=== PATIENT | female | born 1945 | race Caucasian/White ===

== ENCOUNTER 2021-10-09 16:10 | Observation (INO) | payer MEDICARE, SELFPAY ==
[2021-10-09 16:34] VITALS: BMI 22.4
[2021-10-09] MEDS ORDERED: Ondansetron PF 4 MG/2 ML Vial IVP PRN (16:41)
[2021-10-09] MEDS ORDERED: Acetaminophen 325 MG TAB PO PRN (16:41)
[2021-10-09] MEDS ORDERED: HYDROcodone/Acetaminophen 5/325 mg Tablet PO PRN (16:41)
[2021-10-09] MEDS ORDERED: hydrALAZINE 20 MG/ML VIAL SLOW IVP PRN (16:46)
[2021-10-09] MEDS ORDERED: Sodium Chloride 0.9% 500 ML IV SCH (17:15)
[2021-10-09 17:20] LABS: Bilirubin Neg (Negative); Blood, Urine Negative (Negative); Clarity Clear (Clear); Glucose, Urine (Dipstick) Normal (Negative); Ketone, Urine 15 mg/dL (Negative); Leukocyte Negative (Negative); Nitrite Negative (Negative); Protein, Urine (Dipstick) Negative (Neg-Trace); Specific Gravity, Urine 1.015 (1.002-1.036); Urobilinogen Normal mg/dL (Less than 2)
[2021-10-09 17:23] LABS: Troponin I 0.122 ng/mL (< 0.028)
[2021-10-09 20:10] LABS: Troponin I 0.099 ng/mL (< 0.028)
[2021-10-10 05:01] LABS: #Eosinphils 0.1 10x3/uL (0.0-0.5); #Monocytes 0.5 10x3/uL (0.0-1.1); #Neutrophils 3.1 10x3/uL (1.5-8.4); %Basophils 0.2 % (0.0-2.0); %Eosinophils 1.5 % (0.0-6.0); %Lymphocytes 28.8 % (18.0-47.0); %Monocytes 9.9 % (0.0-10.0); %Neutrophils 59.4 % (40.0-75.0); Hemoglobin 13.4 g/dL (12.0-15.5); Mean Corpuscular HGB CONC 34.8 g/dL (32.0-36.0); Mean Corpuscular Hemoglobin 30.7 pg (27.0-33.0); Mean Corpuscular Volume 88.1 fl (81.6-98.3); Mean Platelet Volume 10.1 fl (7.4-10.4); Platelet Count 218 10x3/uL (150-450); RBC Distribution Width 12.2 % (11.5-14.5); Red Blood Cell (RBC) Count 4.37 10x6/uL (3.90-5.03); White Blood Cell (WBC) Count 5.3 10x3/uL (3.5-10.5)
[2021-10-10 05:15] LABS: ALT (SGPT) 20 U/L (8-55); AST (SGOT) 17 U/L (5-34); Albumin 3.8 g/dL (3.4-4.8); Alkaline Phosphatase 57 U/L (40-110); Anion Gap 10 mmol/L (10-20); BUN (Urea Nitrogen) 7 mg/dL (9.8-20.1); Bilirubin, Total 0.9 mg/dL (0.2-1.2); Calc. Creatinine Clearance 70 mL/min (70-130); Calcium 9.1 mg/dL (7.8-10.44); Carbon Dioxide 26 mmol/L (23-31); Cardiac Risk 2.8 (Less than 4.5); Chloride 98 mmol/L (98-107); Cholesterol 173 mg/dl (< 200 Desired); Globulin 2.2 g/dL (2.4-3.5); Glucose 110 mg/dL (83-110); HDL Cholesterol 61 mg/dL (>60 Neg Risk); LDL Cholesterol, Calculated 96 mg/dL; Potassium 3.5 mmol/L (3.5-5.1); Sodium 130 mmol/L (136-145); Triglycerides 78 mg/dL (Less than 150)
[2021-10-10] MEDS ORDERED: Enoxaparin Sodium 40 MG/0.4 ML SYRINGE SC SCH (09:00)
[2021-10-10] MEDS ORDERED: Aspirin Chewable 81 MG TAB PO SCH (09:00)
[2021-10-10] MEDS ORDERED: Losartan Potassium 50 MG TAB PO SCH (09:00)
[2021-10-10 12:07] VITALS: BP 140/65; TEMP 98
[2021-10-10] MEDS ORDERED: Potassium Chloride 20 MEQ TAB PO SCH (14:00)
[2021-10-10 14:13] LABS: Free T4 (Free Thyroxine) 0.96 ng/dL (0.70-1.48); Thyroid Stimulating Hormone 1.3729 uIU/mL (0.35-4.94)
[2021-10-10 17:07] LABS: Hemoglobin A1c 5.1 % (4.0-6.0)
[2021-10-10] MEDS ORDERED: Atorvastatin Calcium 20 MG TAB PO SCH (21:00)
== END 2021-10-10 16:45 | disposition home or self-care (01) ==
LOC: CSHTELE 16:10 → INTOOBSV 16:10
PROVIDERS: ADMIT Family Medicine; ATTEND Family Medicine
DX: R55 Syncope and collapse (principal); I10 Essential (primary) hypertension; R09.89 Other specified symptoms and signs involving the circulatory and respiratory systems; I25.10 Atherosclerotic heart disease of native coronary artery without angina pectoris
CPT/HCPCS: 70551; 71275; 80061; 81003; 83036; 84439; 84484 ×2; 93005 ×2; 93306; 96372; 96374; 97139; G0378 ×2; 36415; 80053; 84443; 85025; 93010; J0360; J1650; J7030

== ENCOUNTER 2021-10-18 14:02 | Emergency (ER) | payer MEDICARE | END 2021-10-18 15:23 | disposition home or self-care (01) | LOC: CSHERS 14:02 | DX: S01.01XD Laceration without foreign body of scalp, subsequent encounter (principal); I10 Essential (primary) hypertension; Z48.02 Encounter for removal of sutures ==

== ENCOUNTER 2021-10-24 12:03 | Emergency (ER) | payer MEDICARE | END 2021-10-24 12:07 | disposition home or self-care (01) | LOC: CSHERS 12:03 | DX: S01.01XD Laceration without foreign body of scalp, subsequent encounter (principal); I10 Essential (primary) hypertension; Z79.899 Other long term (current) drug therapy ==

== ENCOUNTER 2021-10-25 09:56 | Observation (INO) | payer MEDICARE ==
[2021-10-25] MEDS ORDERED: Nitroglycerin 2% Ointment 1 INCH/1 GM Packet ONE (10:34)
[2021-10-25] MEDS ORDERED: Aspirin Chewable 81 MG TAB ONE (10:34)
[2021-10-25 10:43] LABS: #Eosinphils 0.1 10x3/uL (0.0-0.5); #Monocytes 0.5 10x3/uL (0.0-1.1); #Neutrophils 5.2 10x3/uL (1.5-8.4); %Basophils 0.6 % (0.0-2.0); %Eosinophils 1.4 % (0.0-6.0); %Lymphocytes 17.9 % (18.0-47.0); Hemoglobin 14.8 g/dL (12.0-15.5); Mean Corpuscular HGB CONC 34.3 g/dL (32.0-36.0); Mean Corpuscular Hemoglobin 30.6 pg (27.0-33.0); Mean Corpuscular Volume 89.3 fl (81.6-98.3); Mean Platelet Volume 9.9 fl (7.4-10.4); Platelet Count 287 10x3/uL (150-450); Red Blood Cell (RBC) Count 4.84 10x6/uL (3.90-5.03); White Blood Cell (WBC) Count 7.2 10x3/uL (3.5-10.5)
[2021-10-25 11:02] LABS: ALT (SGPT) 21 U/L (8-55); AST (SGOT) 20 U/L (5-34); Albumin 4.5 g/dL (3.4-4.8); Alkaline Phosphatase 83 U/L (40-110); Anion Gap 13 mmol/L (10-20); BUN (Urea Nitrogen) 12 mg/dL (9.8-20.1); Bilirubin, Total 0.6 mg/dL (0.2-1.2); CK (CPK) 71 U/L (29-168); Calc. Creatinine Clearance 0 mL/min (70-130); Calcium 9.9 mg/dL (7.8-10.44); Carbon Dioxide 29 mmol/L (23-31); Chloride 98 mmol/L (98-107); Globulin 2.6 g/dL (2.4-3.5); Glucose 114 mg/dL (83-110); Lipase 47 U/L (8-78); Potassium 4.1 mmol/L (3.5-5.1); Protein, Total 7.1 g/dL (5.8-8.1); Sodium 136 mmol/L (136-145)
[2021-10-25 11:19] LABS: CKMB 1.3 ng/mL (0-6.6)
[2021-10-25] MEDS ORDERED: Ondansetron PF 4 MG/2 ML Vial IVP PRN (12:45)
[2021-10-25] MEDS ORDERED: Acetaminophen 650 MG Suppository PR PRN (12:45)
[2021-10-25] MEDS ORDERED: Aspirin 325 MG TAB PO SCH (12:45)
[2021-10-25] MEDS ORDERED: Acetaminophen 325 MG TAB PO PRN (12:45)
[2021-10-25] MEDS ORDERED: Ondansetron ODT 4 MG TAB PO PRN (12:45)
[2021-10-25 13:26] LABS: Troponin I 0.095 ng/mL (< 0.028)
[2021-10-25 14:05] VITALS: BMI 22.1
[2021-10-25 16:14] LABS: Troponin I 0.089 ng/mL (< 0.028)
[2021-10-25] MEDS ORDERED: Atorvastatin Calcium 20 MG TAB PO SCH (21:00)
[2021-10-26 04:03] LABS: #Eosinphils 0.2 10x3/uL (0.0-0.5); #Monocytes 0.5 10x3/uL (0.0-1.1); #Neutrophils 2.7 10x3/uL (1.5-8.4); %Basophils 0.6 % (0.0-2.0); %Eosinophils 3.7 % (0.0-6.0); %Lymphocytes 35.3 % (18.0-47.0); %Neutrophils 50.8 % (40.0-75.0); Hemoglobin 13.8 g/dL (12.0-15.5); Mean Corpuscular HGB CONC 33.1 g/dL (32.0-36.0); Mean Corpuscular Hemoglobin 31.3 pg (27.0-33.0); Mean Corpuscular Volume 94.6 fl (81.6-98.3); Mean Platelet Volume 11.3 fl (7.4-10.4); RBC Distribution Width 12.1 % (11.5-14.5); Red Blood Cell (RBC) Count 4.41 10x6/uL (3.90-5.03); White Blood Cell (WBC) Count 5.4 10x3/uL (3.5-10.5)
[2021-10-26 04:11] LABS: Anion Gap 13 mmol/L (10-20); BUN (Urea Nitrogen) 13 mg/dL (9.8-20.1); Calc. Creatinine Clearance 67 mL/min (70-130); Calcium 9.2 mg/dL (7.8-10.44); Carbon Dioxide 25 mmol/L (23-31); Chloride 101 mmol/L (98-107); Glucose 91 mg/dL (83-110); Potassium 3.9 mmol/L (3.5-5.1); Sodium 135 mmol/L (136-145)
[2021-10-26 05:05] LABS: Platelet Count 194 10x3/uL (150-450)
[2021-10-26] MEDS ORDERED: Clopidogrel Bisulfate 75 MG TAB PO SCH (09:00)
[2021-10-26] MEDS ORDERED: Losartan Potassium 50 MG TAB PO SCH (09:00)
[2021-10-26] MEDS ORDERED: Aspirin Chewable 81 MG TAB PO SCH (09:00)
[2021-10-26 10:23] LABS: SARS-CoV-2 PCR by NAA Not Detected (NotDetected)
[2021-10-26 11:44] LABS: Troponin I 0.072 ng/mL (< 0.028)
[2021-10-26 11:58] VITALS: BP 131/70; TEMP 98.4
== END 2021-10-26 13:45 | disposition home or self-care (01) ==
LOC: CSHERS 09:56 → CSHTELE 11:55
PROVIDERS: ADMIT Hospitalist; ATTEND Hospitalist
DX: I25.118 Atherosclerotic heart disease of native coronary artery with other forms of angina pectoris (principal); R42 Dizziness and giddiness; I10 Essential (primary) hypertension; Z95.5 Presence of coronary angioplasty implant and graft; Z79.899 Other long term (current) drug therapy; Z79.82 Long term (current) use of aspirin; Z79.02 Long term (current) use of antithrombotics/antiplatelets; E78.5 Hyperlipidemia, unspecified; Z20.822 Contact with and (suspected) exposure to COVID-19
CPT/HCPCS: 71045; 80048; 80053; 82550; 82553; 83690; 84484 ×3; 85025 ×2; 93005 ×2; 94760; 99285; G0378 ×2; U0003; U0005; 36415; 93010

== ENCOUNTER 2022-12-01 10:32 | Observation (INO) | payer MEDICARE ==
[2022-12-01 11:20] LABS: #Eosinphils 0.1 10x3/uL (0.0-0.5); #Monocytes 0.5 10x3/uL (0.0-1.1); #Neutrophils 3.3 10x3/uL (1.5-8.4); %Lymphocytes 24.3 % (18.0-47.0); %Monocytes 9.2 % (0.0-10.0); %Neutrophils 64.3 % (40.0-75.0); Hemoglobin 15.8 g/dL (12.0-15.5); Mean Corpuscular HGB CONC 36.2 g/dL (32.0-36.0); Mean Corpuscular Hemoglobin 31.4 pg (27.0-33.0); Mean Corpuscular Volume 86.9 fl (81.6-98.3); Mean Platelet Volume 9.8 fl (7.4-10.4); Platelet Count 212 10x3/uL (150-450); RBC Distribution Width 11.9 % (11.5-14.5); Red Blood Cell (RBC) Count 5.03 10x6/uL (3.90-5.03); White Blood Cell (WBC) Count 5.1 10x3/uL (3.5-10.5)
[2022-12-01 11:34] LABS: ALT (SGPT) 35 U/L (8-55); AST (SGOT) 30 U/L (5-34); Albumin 4.5 g/dL (3.4-4.8); Alkaline Phosphatase 78 U/L (40-110); Anion Gap 12 mmol/L (10-20); BUN (Urea Nitrogen) 8 mg/dL (9.8-20.1); Bilirubin, Total 0.9 mg/dL (0.2-1.2); Calc. Creatinine Clearance 0 mL/min (70-130); Carbon Dioxide 28 mmol/L (23-31); Chloride 96 mmol/L (98-107); Estimated GFR 73; Globulin 2.5 g/dL (2.4-3.5); Glucose 92 mg/dL (83-110); Potassium 4.2 mmol/L (3.5-5.1); Sodium 132 mmol/L (136-145)
[2022-12-01 11:56] LABS: CKMB 1.2 ng/mL (0-6.6)
[2022-12-01] MEDS ORDERED: Aspirin Chewable 81 MG TAB ONE (12:19)
[2022-12-01] MEDS ORDERED: Ondansetron PF 4 MG/2 ML Vial IVP PRN (13:22)
[2022-12-01] MEDS ORDERED: Ondansetron ODT 4 MG TAB PO PRN (13:22)
[2022-12-01] MEDS ORDERED: Nitroglycerin 0.4 MG TAB (25 Tab Bottle) SL PRN (13:22)
[2022-12-01] MEDS ORDERED: Acetaminophen 325 MG TAB PO PRN (13:22)
[2022-12-01] MEDS ORDERED: hydrALAZINE 20 MG/ML VIAL ONE (13:26)
[2022-12-01 14:43] LABS: Troponin I 0.036 ng/mL (< 0.028)
[2022-12-01 18:00] LABS: Troponin I 0.034 ng/mL (< 0.028)
[2022-12-01] MEDS ORDERED: Famotidine 20 MG TAB ONE (20:12)
[2022-12-01] MEDS: Famotidine 20 MG TAB PO SCH (20:21)
[2022-12-01] MEDS ORDERED: OLMESARTAN 40MG TABLET PO SCH (21:00)
[2022-12-01 21:56] LABS: SARS-CoV-2 NAA Rapid Test Not Detected (NotDetected)
[2022-12-02 03:44] LABS: #Eosinphils 0.1 10x3/uL (0.0-0.5); #Monocytes 0.6 10x3/uL (0.0-1.1); #Neutrophils 2.9 10x3/uL (1.5-8.4); %Eosinophils 1.7 % (0.0-6.0); %Lymphocytes 32.1 % (18.0-47.0); %Monocytes 11.8 % (0.0-10.0); %Neutrophils 54.2 % (40.0-75.0); Hemoglobin 14.3 g/dL (12.0-15.5); Mean Corpuscular HGB CONC 36.3 g/dL (32.0-36.0); Mean Corpuscular Hemoglobin 31.3 pg (27.0-33.0); Mean Corpuscular Volume 86.2 fl (81.6-98.3); Mean Platelet Volume 10.1 fl (7.4-10.4); Platelet Count 225 10x3/uL (150-450); RBC Distribution Width 11.9 % (11.5-14.5); Red Blood Cell (RBC) Count 4.57 10x6/uL (3.90-5.03); White Blood Cell (WBC) Count 5.3 10x3/uL (3.5-10.5)
[2022-12-02 03:57] LABS: Anion Gap 12 mmol/L (10-20); BUN (Urea Nitrogen) 12 mg/dL (9.8-20.1); Calc. Creatinine Clearance 0 mL/min (70-130); Calcium 9.5 mg/dL (7.8-10.44); Carbon Dioxide 24 mmol/L (23-31); Chloride 102 mmol/L (98-107); Estimated GFR 83; Glucose 89 mg/dL (83-110); Potassium 3.9 mmol/L (3.5-5.1); Sodium 134 mmol/L (136-145)
[2022-12-02] MEDS ORDERED: Aspirin Chewable 81 MG TAB ONE (07:12)
[2022-12-02] MEDS ORDERED: Clopidogrel Bisulfate 75 MG TAB ONE (07:12)
[2022-12-02] MEDS ORDERED: Famotidine 20 MG TAB ONE (07:13)
[2022-12-02] MEDS ORDERED: Clopidogrel Bisulfate 75 MG TAB PO SCH (09:00)
[2022-12-02] MEDS ORDERED: Aspirin Chewable 81 MG TAB PO SCH (09:00)
[2022-12-02] MEDS ORDERED: OLMESARTAN MEDOXOMIL 40 MG PO SCH (09:00)
[2022-12-02] MEDS: Famotidine 20 MG TAB PO SCH (09:30)
== END 2022-12-02 14:24 | disposition home or self-care (01) ==
LOC: CSHERS 10:32 → CSHERHOLD 16:59
PROVIDERS: ADMIT Family Medicine; ATTEND Family Medicine
DX: R55 Syncope and collapse (principal); I10 Essential (primary) hypertension; I25.118 Atherosclerotic heart disease of native coronary artery with other forms of angina pectoris; E78.2 Mixed hyperlipidemia; R42 Dizziness and giddiness; Z20.822 Contact with and (suspected) exposure to COVID-19; Z88.8 Allergy status to other drugs, medicaments and biological substances; Z79.82 Long term (current) use of aspirin; Z79.899 Other long term (current) drug therapy; Z79.02 Long term (current) use of antithrombotics/antiplatelets; Z95.5 Presence of coronary angioplasty implant and graft
CPT/HCPCS: 71045; 80048; 82553; 83880; 84484 ×2; 85025; 93005; 93306; 94760 ×2; 96374; 99285; G0378 ×2; U0002; 36415; 80053; 84443; J0360

== ENCOUNTER 2023-03-16 10:20 | Outpatient (CLI) | payer MEDICARE | END 2023-03-16 10:21 | disposition home or self-care (01) | LOC: CSHMAMMO 10:20 | PROVIDERS: ATTEND Internal Medicine | DX: Z12.31 Encounter for screening mammogram for malignant neoplasm of breast (principal); Z80.3 Family history of malignant neoplasm of breast; Z91.89 Other specified personal risk factors, not elsewhere classified | CPT/HCPCS: 77063; 77067 ==

== ENCOUNTER 2025-08-01 13:36 | Outpatient (CLI) | payer MEDICARE | END 2025-08-01 13:37 | disposition home or self-care (01) | LOC: CSHMAMMO 13:36 | PROVIDERS: ATTEND Internal Medicine | DX: Z12.31 Encounter for screening mammogram for malignant neoplasm of breast (principal); Z80.3 Family history of malignant neoplasm of breast; Z91.89 Other specified personal risk factors, not elsewhere classified; N64.89 Other specified disorders of breast | CPT/HCPCS: 77063; 77067 ==

== ENCOUNTER 2025-08-06 13:56 | Outpatient (CLI) | payer MEDICARE | END 2025-08-06 13:57 | disposition home or self-care (01) | LOC: CSHMAMMO 13:56 | PROVIDERS: ATTEND Internal Medicine | DX: N64.89 Other specified disorders of breast (principal) | CPT/HCPCS: 77065; G0279 ==

== ENCOUNTER 2025-10-12 17:28 | Emergency (ER) | payer MEDICARE ==
[2025-10-12] MEDS ORDERED: Aspirin Chewable 81 MG TAB ONE (18:26)
[2025-10-12] MEDS ORDERED: hydrALAZINE 20 MG/ML VIAL ONE (18:41)
[2025-10-12 19:02] LABS: ALT (SGPT) 26 U/L (Less than 34); AST (SGOT) 37 U/L (11-34); Albumin 5.0 g/dL (3.1-4.5); Alkaline Phosphatase 88 U/L (40-110); Anion Gap 17 mmol/L (10-20); BUN (Urea Nitrogen) 18 mg/dL (9.8-20.1); Bilirubin, Total 0.5 mg/dL (0.3-1.2); Calc. Creatinine Clearance 0 mL/min (70-130); Calcium 10.5 mg/dL (7.8-10.44); Carbon Dioxide 26 mmol/L (23-31); Chloride 95 mmol/L (98-107); Globulin 2.7 g/dL (2.4-3.5); Glucose 98 mg/dL (83-110); Lipase 64 U/L (8-78); Potassium 4.5 mmol/L (3.5-5.1); Sodium 133 mmol/L (136-145)
[2025-10-12 19:03] LABS: #Basophils Less than 0.03 10x3/uL (0.0-0.2); #Eosinophils 0.17 10x3/uL (0.0-0.5); #Monocytes 0.57 10x3/uL (0.0-1.1); #Neutrophils 3.52 10x3/uL (1.5-8.4); %Basophils 0.2 % (0.0-2.0); %Eosinophils 2.9 % (0.0-6.0); %Lymphocytes 28.1 % (18.0-47.0); %Monocytes 9.6 % (0.0-10.0); %Neutrophils 59.0 % (40.0-75.0); Hematocrit 42.3 % (34.9-44.5); Hemoglobin 14.8 g/dL (12.0-15.5); Mean Corpuscular Hemoglobin 30.7 pg (27.0-33.0); Mean Corpuscular Volume 87.8 fL (81.6-98.3); Platelet Count 243 10x3/uL (150-450); Red Blood Cell (RBC) Count 4.82 10x6/uL (3.90-5.03); White Blood Cell (WBC) Count 5.95 10x3/uL (3.5-10.5)
[2025-10-12 19:06] LABS: Troponin I Less than 0.010 ng/mL (< 0.028)
[2025-10-12] MEDS ORDERED: Mag-Al 1200 mg/1200 mg/30 ML UDCUP ONE (19:50)
[2025-10-12] MEDS ORDERED: Lidocaine Viscous Sol 2% 15 ml UD Cup ONE (19:50)
[2025-10-12 22:54] LABS: Troponin I Less than 0.010 ng/mL (< 0.028)
== END 2025-10-12 23:18 | disposition home or self-care (01) ==
LOC: CSHERS 17:28
DX: K30 Functional dyspepsia (principal); I10 Essential (primary) hypertension; I25.10 Atherosclerotic heart disease of native coronary artery without angina pectoris; Z95.5 Presence of coronary angioplasty implant and graft
CPT/HCPCS: 71045; 80053; 83690; 84484 ×2; 85025; 85379; 93005; J0360; 36415; 96374